=== PATIENT | male | born 1930 | race Caucasian/White ===

== ENCOUNTER 2018-11-06 13:02 | Emergency (ER) | payer OTHER ==
[~2018-11-06] VITALS: Ht 177.8 cm; Wt 86.8 kg
[2018-11-06 13:07] VITALS: Ht 177.8 cm; Wt 86.8 kg
[2018-11-06 14:05] LABS: INR 1.27 (0.85-1.17); PROTIME 15.3 SECONDS (11.6-15.0)
[2018-11-06 14:06] LABS: APTT 34.4 SECONDS (22.8-39.4)
[2018-11-06 14:09] LABS: BASOPHILS 0.1 % (0-2); EOSINOPHILS 0.7 % (0-7); HEMATOCRIT 34.6 % (42.0-54.0); HEMOGLOBIN 11.3 g/dL (13.5-17.5); IMMATURE GRANULOCYTES 0.4 % (0-5); LYMPHOCYTES 3.5 % (15-50); MCH 27.6 pg (26.0-34.0); MCHC 32.7 g/dL (31.0-37.0); MCV 84.6 fL (80.0-100.0); MEAN PLATELET VOLUME 10.3 fL (7.4-10.4); MONOCYTES 1.8 % (2-11); NEUTROPHILS 93.5 % (40-80); PLATELET COUNT 290 10x3/uL (130-400); RBC 4.09 10x6/uL (4.20-6.10); RDW 17.2 % (11.5-14.5); WBC 13.8 10x3/uL (4.8-10.8)
[2018-11-06 14:15] LABS: ALBUMIN 2.5 g/dL (3.4-5.0); ALKALINE PHOSPHATASE 85 U/L (46-116); ALT (SGPT) 14 U/L (10-68); BILIRUBIN - TOTAL 0.72 mg/dL (0.2-1.3); CALC OSMOLALITY 273 mosm/kg (275-300); CALCIUM 7.8 mg/dL (8.5-10.1); CARBON DIOXIDE 27.1 mmol/L (21.0-32.0); CHLORIDE - SERUM 97 mmol/L (98-107); GLUCOSE 224 mg/dL (74-106); POTASSIUM - SERUM 4.9 mmol/L (3.5-5.1); SODIUM 132 mmol/L (136-145); UREA NITROGEN 18 mg/dL (7-18); eGFR NON AFRICAN AMERICAN 75 mL/min (90-120)
[2018-11-06 14:29] LABS: CKMB 0.7 U/L (0.0-3.6); CREATINE KINASE 17 UL (21-232); MAGNESIUM - SERUM 1.8 mg/dL (1.8-2.4)
[2018-11-06 14:38] LABS: TROPONIN-I < 0.017 ng/mL (0.000-0.060)
[2018-11-06 20:18] VITALS: BP 118/74
[2018-11-06 20:30] LABS: CKMB 1.1 U/L (0.0-3.6); CREATINE KINASE 17 UL (21-232)
[2018-11-06 20:33] LABS: TROPONIN-I < 0.017 ng/mL (0.000-0.060)
== END 2018-11-06 20:19 | disposition other institution (70) ==
LOC: D.ER 13:02
PROVIDERS: Family Medicine
DX: J18.9 Pneumonia, unspecified organism (principal); J90 Pleural effusion, not elsewhere classified